=== PATIENT | female | born 1985 | race Caucasian/White ===

== ENCOUNTER 2017-01-26 13:44 | Emergency (ER) | payer OTHER ==
[~2017-01-26] VITALS: Ht 160 cm; Wt 95.8 kg
[2017-01-26 13:59] VITALS: Ht 160 cm; Wt 95.8 kg
[2017-01-26] MEDS ORDERED: DIPHTH/TET/ACEL PERTUSS (ADULT) 0.5 ML VIAL IM* ONE (17:00)
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
[2017-01-26] MEDS ORDERED: LIDOCAINE 1% (MDV) 20 ML INJ SC ONE (18:00)
--- NOTE | 2017-01-26 18:46 | RADRPT ---
PROCEDURE: Skull series CLINICAL INDICATION: Glass in forehead TECHNIQUE: 3 views of the skull were obtained. COMPARISON: None FINDINGS: No acute fracture is seen. The osseous structures are well mineralized. No osteolytic or blastic l esion is seen. The soft tissue structures are intact. No radiopaque foreign body is seen. IMPRESSION: No radiopaque foreign body identified. RPTAT: HPNM Physician Fede Date Time Electronically viewed and signed by Jaxon Chua Physician on 01/26/2017 18:46 /
[2017-01-26] MEDS ORDERED: CEPH-443 PO (18:49)
[2017-01-26 19:00] VITALS: BP 118/72; PULSE 78; RESP 16; TEMP 98.6
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
== END 2017-01-26 19:02 | disposition home or self-care (01) ==
LOC: FTE 13:44
DX: S89.91XA Unspecified injury of right lower leg, initial encounter (principal); S01.81XA Laceration without foreign body of other part of head, initial encounter; W25.XXXA Contact with sharp glass, initial encounter; Y92.9 Unspecified place or not applicable; Z23 Encounter for immunization
CPT/HCPCS: 12011; 70260; 73510; 73550; 90471; 90715; Z7502; Z7610

== ENCOUNTER 2017-12-19 14:10 | Emergency (ER) | END 2017-12-19 19:15 | disposition home or self-care (01) ==

== ENCOUNTER 2019-01-13 22:08 | Emergency (ER) | payer OTHER ==
[~2019-01-13] VITALS: Ht 157.5 cm; Wt 11.4 kg
[~2019-01-13 22:08] MED LIST: ALBU2.5V3 NEB; ALBU8.5H8 INH; CEPH-443 PO
[2019-01-13 22:19] VITALS: BP 131/78; PULSE 73; RESP 19; Ht 157.5 cm; Wt 11.4 kg
[2019-01-14] MEDS ORDERED: IBUPROFEN 800 MG TAB PO ONE (02:00)
[2019-01-14] MEDS ORDERED: HYDROCODONE/APAP (5/325) TAB PO ONE (02:00)
[2019-01-14] MEDS ORDERED: HYDR-4011 PO (02:17)
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
== END 2019-01-14 02:29 | disposition home or self-care (01) ==
LOC: FTE 22:08
DX: S99.912A Unspecified injury of left ankle, initial encounter (principal); F17.210 Nicotine dependence, cigarettes, uncomplicated; J45.909 Unspecified asthma, uncomplicated; X58.XXXA Exposure to other specified factors, initial encounter; Y92.9 Unspecified place or not applicable
CPT/HCPCS: 73610; Z7502; Z7610